=== PATIENT | male | born 1990 | race Caucasian/White ===

== ENCOUNTER 2024-04-15 20:43 | Emergency (ER) | payer OTHER, SELFPAY ==
[2024-04-15 20:48] VITALS: BP 112/78; BMI 21.2
[2024-04-15 21:54] VITALS: BP 100/74
[2024-04-15 22:00] VITALS: BP 106/83
--- NOTE | 2024-04-15 22:20 | ED.GENMED ---
History of Present Illness
General
Chief Complaint: Dizziness
Source: patient and spouse
Time Seen by Provider: 04/15/24 22:01
History of Present Illness
History of Present Illness:
33-year-old male with no prior medical history, follows a plant-based diet, exercises regularly, takes no medications who presents emergency department with 1 week of experiencing episodes of feeling dizzy, short of breath, and tight across his
chest. He describes the dizziness as a spinning but also a feeling like he is going to pass out and he says he needs to grab onto something and sit down in order to feel better. With this, he notes discomfort across his chest that feels like
'indigestion' also described as 'the whole muscle and without radiation, associated diaphoresis, vomiting, neck pain, jaw pain, back pain. He does not feel breathless, says he feels like he is getting air in but sometimes it feels like its 'not
enough. He denies associated cough, sore throat, rhinorrhea, fever. Occasionally he gets nauseous. He denies ear pain or recent URI, hearing loss or ringing in his ears. He denies recent immobilization or trauma, calf swelling, personal or
family history of DVT, diplopia, dysarthria, change in swallowing. Sometimes with these episodes he also will feel like his arms and hands are tingling. Patient saw his PCP and had lab work done which he showed to me generally unremarkable. He
presents to the ER because symptoms keep happening. He denies exacerbating relieving factors such as position, head tilt, etc.
Past History
Past History
ED Past Medical History: None
ED Past Surgical History: None
Social History
Tobacco: Non-smoker
Alcohol: None
Drug: None
Personal:
Living: with family
Employment: Employed
Family History
Family History: Other (NA)
Phy Exam
Physical Exam
Physical Exam:
GENERAL: Alert , in no apparent distress
EYE: pupils equal and reactive, EOMI, no nystagmus, no photophobia, developing
NECK: Supple, no significant adenopathy.
ENT: o/p clr, mmm.
CARDIAC: Regular rate and rhythm .
LUNGS: Clear breath sounds bilaterally, no acute respiratory distress, no wheezes/rales/rhonchi
ABDOMEN: Soft, without focal tenderness, no r/g, no cvat
NEUROLOGICAL: Alert and oriented, no focal neuro deficits, normal gait, motor 5 out of 5, sensory intact, cranial nerves II through XII intact, [id number] normal
SKIN: Warm and dry, skin intact.
MUSCULOSKELETAL: No edema, well perfused.
PSYCH: Normal and appropriate interaction.
Course
Orders/Labs/Results
Orders:
Orders
04/15/24 20:51
EKG [Electrocardiogram (*1)] Urgent
Reason for Study: Vertigo / Dizzy
EKG- Treatment ONCE
04/15/24 22:20
CT Head W/o Iv Contrast Urgent
Comment:
Reason For Exam: dizziness
Vital Signs
Initial and Last Documented VS:
Initial Vital Signs
Temp Pulse Resp BP Pulse Ox
98 F 87 16 112/78 98
04/15/24 20:48 04/15/24 20:48 04/15/24 20:48 04/15/24 20:48 04/15/24 20:48
Last Documented Vital Signs
Temp Pulse Resp BP Pulse Ox
98 F 87 16 112/78 100
04/15/24 20:48 04/15/24 20:48 04/15/24 20:48 04/15/24 20:48 04/15/24 21:54
*Critical Care Note
Total Time (30-74mins, 75-104mins- exclusive of procedures): Not Applicable
Update Note
Update Note:
Patient presents to the Emergency Department with ____dizziness chest pain and shortness of breath
Number and Complexity of Problems Addressed at the Encounter
� Chronic conditions affecting care:
� Acute Exacerbation and/or Progression of Chronic Illness:
� Differential Diagnosis includes: But not limited to anxiety, peripheral vertigo, arrhythmia, anemia, etc.
Amount and/or Complexity of Data to be Reviewed and Analyzed
� I performed an independent evaluation of and my interpretation is:
EKG: Read by me, normal sinus rhythm, normal rate, normal axis
CT: Read by radiology NAD
Xrays:
Laboratory Studies: Reviewed from studies this week, CBC BMP within normal limits
Other:
� Review of other/old records reveals:
� Clinical information was obtained by an independent historian: who is bedside
� Prescriptions/Medications Considered but not given:
� Further testing considered but not performed:
Risk of Complications and/or Morbidity or Mortality of Patient Management
� Social determinants of health affecting care:
� Discussion with other providers (PCP, Hospitalists, Consultants, etc):
� Escalation of care including admission/observation vs risk of discharge considered: 11:37 PM patient with normal neurological exam, nonspecific history in regards to no 'red flag' findings to suggest acute neurological,
cardiovascular etc. event. Discussed with patient importance of continued evaluation as an outpatient.
ED Attending Note
-
Portions of this chart may have been created with voice recognition software.� Occasional wrong word or��sound alike� substitutions may have occurred due to the inherent limitations of voice recognition software.
Discharge Plan
Departure
Patient Disposition: Home (Routine Discharge)
Date of Disposition: 04/15/24
Time of Disposition: 23:34
Patient with high blood pressure during this ER visit?: No
Condition: Good
Discharge Problem:
Dizziness
Instructions: Dizziness
Prescriptions:
No Action
meclizine 25 mg tablet
25 mg PO BID PRN (Reason: dizziness) Qty: 20 0RF
Referrals:
Lizet Kurtz, DO [Family Provider] -
Aspen Younger DO [Active] - Next open appointment
Activity Restrictions/Additional Instructions:
IF YOU DEVELOP CONTINUED CHEST PAIN, TROUBLE BREATHING, WORSENING DIZZINESS, FEVER, VOMITING, CHANGE IN SPEECH, CHANGE IN VISION, GET WORSE, OR OTHER WORRISOME SIGNS, PLEASE RETURN TO THE ER IMMEDIATELY.
Interventions
Interventions:
*Risk Screen - Suicide Last Done: 04/15/24 20:48
*General Assessment Last Done: 04/15/24 21:54
*Neglect/Abuse Screening Last Done: 04/15/24 20:48
ED- Fall Risk Assessment Last Done: 04/15/24 20:48
ED- Neurological Assessment Last Done: 04/15/24 21:54
ED- Cardiac Assessment Last Done: 04/15/24 21:54
Discharge Date and Time
Print Language: GUINEAN
--- NOTE | 2024-04-15 22:25 | EDRN ---
Dr. Finney had patient ambulate in hallway, patient ambulated with steady gait and back to room without difficulty, no change in dizziness during ambulation
[2024-04-15 23:17] VITALS: BP 97/68
== END 2024-04-16 00:01 | disposition home or self-care (01) ==
LOC: EMR 20:43
PROVIDERS: EMERGENCY PHYSICIAN Emergency Medicine; FAMILY PHYSICIAN Internal Medicine
DX: R42 Dizziness and giddiness (principal)
CPT/HCPCS: 99284; 70450; 93005

== ENCOUNTER 2024-05-06 20:30 | Emergency (ER) | payer OTHER, SELFPAY ==
[2024-05-06 20:31] VITALS: BMI 21.5
[2024-05-06 20:39] VITALS: BP 91/64
[2024-05-06 21:05] LABS: % Basophils 0.3 % (0-2); % Eosinophils 0.8 % (0-6); % Immature Granulocytes 0.6 % (0-0.5); % Lymphocytes 14.1 % (20.5-51.1); % Monocytes 6.2 % (1.7-9.3); Absolute Eosinophils 0.1 10^3/uL (0-0.7); Absolute Immature Granulocytes 0.1 10^3/uL (0-0.05); Absolute Monocytes 0.9 10^3/uL (0.1-0.6); Absolute Neutrophils 11.1 10^3/uL (1.4-6.5); Hemoglobin 14.1 g/dL (13.0-18.0); Mean Corp Hgb Conc. 34.4 g/dL (33.0-37.0); Mean Corpuscular Hgb 28.1 pg (27.0-31.0); Mean Corpuscular Volume 81.8 fL (80.0-94.0); Mean Platelet Volume 11.1 fL (7.4-10.4); Nucleated Red Blood Cells % 0 % (-); Platelet Count 211 10^3/uL (130-400); Red Blood Cell Count 5.01 10^6/uL (4.70-6.10); Red Cell Dist. Width 12.2 % (11.5-14.5); White Blood Cell Count 14.2 10^3/uL (4.8-10.8)
[2024-05-06 21:38] LABS: ALT (SGPT) 16 U/L (0-50); AST (SGOT) 27 U/L (17-59); Albumin 4.6 g/dl (3.5-5.0); Alkaline Phosphatase 72 U/L (38-126); Blood Urea Nitrogen 9 mg/dl (9-20); Calcium 10.2 mg/dl (8.4-10.2); Carbon Dioxide 31 mmol/L (22-30); Chloride 101 mmol/L (98-107); Glucose 88 mg/dl (70-99); Potassium 4.2 mmol/L (3.5-5.1); Sodium 141 mmol/L (135-145); Total Bilirubin 1.8 mg/dl (0.2-1.3); Total Protein 7.1 g/dl (6.3-8.2); Troponin I < 0.012 ng/ml; eGFR > 60.00
[2024-05-06 22:35] VITALS: BP 118/77
[2024-05-06 22:46] VITALS: BP 108/75
--- NOTE | 2024-05-06 23:57 | ED.GENMED ---
History of Present Illness
General
Chief Complaint: Chest Pain
Source: patient
Exam Limitations: none
Time Seen by Provider: 05/06/24 23:38
History of Present Illness
History of Present Illness:
This is a 33 year old male that comes in with c/o pain just below the sternum. States that this started 2 weeks ago and has been constant. States that yesterday t seemed to get worse. States that he went to the PCP and they did labs and told him to
take Pepcid AD. States that it wasn't getting any better so he did the [facility] and they put him on Omeprazole daily. States that this is not helping. States that now he was told to take Pepcid 2 tablets and Omeprazole once. States that he feels
slightly SOB with the pain, his appetite has decreased and he is nauseated. States that he feels like he is on a boat. Denies any fever, chills, vomiting, diarrhea, headache, urinary burning.
Past History
Past History
ED Past Medical History: Other (Colitis)
ED Past Surgical History: None
Social History
Tobacco: Non-smoker
Alcohol: None
Drug: None
Personal:
Living: with family
Employment: Employed
Family History
Family History: Other (NA)
Review of Systems
Review of Systems
All Other Systems: ROS reviewed and negative except as documented in HPI and ROS
Constitutional: Reports no symptoms; Denies fever or chills
EENT: Reports no symptoms
Respiratory: Reports trouble breathing; Denies cough
Cardiac: Reports no symptoms; Denies chest pain
ABD/GI: Reports abdominal pain (Upper abd just below the sternum), nausea and other (Decreased appetite); Denies vomiting or diarrhea
: Reports no symptoms; Denies dysuria, frequency or urgency
Musculoskeletal: Reports no symptoms
Skin: Reports no symptoms
Neurological: Reports dizzy (Feels like he is on a boat); Denies headache
Psychiatric: Reports no symptoms
Phy Exam
General Physical Exam
General Presentation: well appearing and no apparent distress
General age: appears stated age
General Skin: warm and dry
General Habitus: normal
General Mental: alert
General Hydration: appears well hydrated
ENT Exam
ENT Exam: TM's normal, pharynx normal and neck supple
Eye Exam
Eye Exam: EOMI
Cardiovascular Exam
Cardiovascular Exam: regular rate/rhythm, no edema, no murmur and normal peripheral pulses
Pulmonary Exam
Pulmonary Exam: lungs clear, no respiratory distress, no rales, chest non tender, no crackles, no rhonchi, no wheezing and no cough
Gastrointestinal Exam
Gastrointestinal Exam: normal bowel sounds, non tender, soft, no organomegaly, no pulsatile mass and non distended
Musculoskeletal Exam
Musculoskeletal Exam: full ROM and no edema
Skin Exam
Skin Exam: normal color, warm/dry, no rash and no petechia
Psychiatric Exam
Psychiatric Exam: normal mood/affect
Scores
Heart Score for Chest Pain Patients
STEMI patient?: Not applicable
Course
Orders/Labs/Results
Orders:
Orders
05/06/24 20:44
Electrocardiogram (*1) Urgent
Reason for Study: Chest Pain
EKG- Treatment ONCE
05/06/24 20:55
Complete Blood Count/With Diff Urgent
Comprehensive Metabolic Panel Urgent
Troponin I Urgent
05/06/24 23:57
Pantoprazole [Protonix IV] 40 mg IV NOW STA
Sucralfate Suspension [Carafate Suspension] 1 gm PO NOW STA
Abnormal Lab Results
05/06/24
20:55
WBC 14.2 H 10^3/uL
(4.8-10.8)
MPV 11.1 H fL
(7.4-10.4)
Abs Immat Gran (auto) 0.1 H 10^3/uL
(0-0.05)
Absolute Neuts (auto) 11.1 H 10^3/uL
(1.4-6.5)
Absolute Monos (auto) 0.9 H 10^3/uL
(0.1-0.6)
Immature Gran % 0.6 H %
(0-0.5)
Neutrophils % 78.0 H %
(42.2-75.2)
Lymphocytes % 14.1 L %
(20.5-51.1)
Carbon Dioxide 31 H mmol/L
(22-30)
Total Bilirubin 1.8 H mg/dl
(0.2-1.3)
05/06/24 20:55
05/06/24 20:55
Leukocytosis, Total martina slightly elevated. Troponin <0.012
Vital Signs
Initial and Last Documented VS:
Initial Vital Signs
Temp Pulse Resp BP Pulse Ox
97.7 F 86 18 91/64 98
05/06/24 20:39 05/06/24 20:39 05/06/24 20:39 05/06/24 20:39 05/06/24 20:39
Last Documented Vital Signs
Temp Pulse Resp BP Pulse Ox
97.7 F 66 16 115/77 98
05/06/24 20:39 05/07/24 01:00 05/07/24 00:28 05/07/24 01:00 05/07/24 01:00
MDM/Problems Addressed
Differential Diagnosis Includes:
Gastritis, Developing Ulcer
MDM/Problems Addressed:
This is a 33 year old male that comes in with c/o upper abd pain. States that this has been going on for 2 weeks and that the pain is getting worse. States that he is taking Pepcid and Omeprazole but nothing is helping.
Will check labs, Give Carafate and Protonix and recheck.
Back into see patient. States that he feels that the pain may have moved down an little bit. Will place patient on Protonix and have him stop the Pepcid and Omeptrazole. Will also give patient Carafate. Patient to follow up with the GI specialist.
Patient to return with increased or changing pain, vomiting blood or any other concerns.
Chronic conditions affecting care:
NA
Acute Exacerbation and/or Progression of Chronic Illness:
NA
*Pulse Oximetry
Patient hypoxic: no
*EKG
Interpreted by ED Provider?: Yes
Heart Rate: 70
Rate: normal
Rhythm: sinus
Interval: normal interval
QRS Pattern: normal QRS
Ischemia: no ischemia
*Fiscal Analyst Interpretation
Rate: normal
Heart Rate: 79
Rhythm: sinus
*Critical Care Note
Total Time (30-74mins, 75-104mins- exclusive of procedures): Not Applicable
ED Attending Note
-
Portions of this chart may have been created with voice recognition software.� Occasional wrong word or��sound alike� substitutions may have occurred due to the inherent limitations of voice recognition software.
Discharge Plan
Departure
Patient Disposition: Home (Routine Discharge)
Date of Disposition: 05/07/24
Time of Disposition: 02:09
Patient with high blood pressure during this ER visit?: No
Condition: Good
Covid-19: Not Applicable
Discharge Problem:
Gastritis
Instructions: Gastritis (DC)
Prescriptions:
New
pantoprazole [Protonix] 40 mg tablet,delayed release (DR/EC)
40 mg PO DAILY Qty: 30 0RF
sucralfate [Carafate] 1 gram tablet
1 g PO ACHS Qty: 40 0RF
Rx Instructions:
dissolve in 2tsp water and drink. 30min-1 hour before meals and HS.
No Action
omeprazole 40 mg Capsule,Delayed Release(Dr/Ec)
40 mg PO DAILY
Referrals:
Ahmad,Asyia S., MD [Active] - Call in 1-3 days for appt
Lizet Kutrz DO [Family Provider] -
Activity Restrictions/Additional Instructions:
As discussed, your blood work shows that your white blood cell count is slightly elevated. Otherwise your labs are normal. This is most likely a Gastritis or a developing Ulcer. Please stay away from any caffeine. You have have 2 prescriptions sent
to your Pharmacy. Please take as directed until finished. Take the Carafate 30 miin to 1 hour before each meal and again at bedtime. Dissolve the tablet in 2 tsp of water and drink. Follow up with the GI specialist for further evaluation. IF YOU
HAVE INCREASED OR CHANGING PAIN, VOMITING BLOOD OR YOU HAVE ANY OTHER CONCERNS PLEASE RETURN TO THE EMERGENCY ROOM
Interventions
Interventions:
*Risk Screen - Suicide Last Done: 05/06/24 20:39
*General Assessment Last Done: 05/06/24 20:39
*Neglect/Abuse Screening Last Done: 05/06/24 20:39
ED- Fall Risk Assessment Last Done: 05/06/24 22:37
*ED COVID-19 Vaccine History Last Done: 05/06/24 22:37
ED- Cardiac Assessment Last Done: 05/06/24 22:37
Discharge Date and Time
Print Language: BELIZEAN
[2024-05-07] MEDS: CARAFATE SUSPENSION 1 GM PO (00:19)
[2024-05-07] MEDS: PROTONIX IV 40 MG IV (00:20)
[2024-05-07 00:28] VITALS: BP 103/79
[2024-05-07 01:00] VITALS: BP 115/77
[2024-05-07 02:00] VITALS: BP 110/80
== END 2024-05-07 02:32 | disposition home or self-care (01) ==
LOC: EMR 20:30
PROVIDERS: Emergency Medicine; EMERGENCY PHYSICIAN Student in an Organized Health Care Education/Training Program; FAMILY PHYSICIAN Internal Medicine
DX: K29.00 Acute gastritis without bleeding (principal); R42 Dizziness and giddiness; R06.02 Shortness of breath; K52.9 Noninfective gastroenteritis and colitis, unspecified; Z88.8 Allergy status to other drugs, medicaments and biological substances
CPT/HCPCS: 99284; 96374; 80053; 84484; 85025; 93005